=== PATIENT | male | born 1975 | race Caucasian/White ===

== ENCOUNTER → 2022-08-18 | Outpatient (CLI) | payer OTHER ==
[2022-08-18 08:02] VITALS: BP 127/79; PULSE 70; RESP 18
--- NOTE | 2022-08-18 14:43 | P.PAINPG ---
PQRS Measure Charge Sheet Comment: HISTORY OF PRESENT ILLNESS: 47 yr old male as a referral from [facility] presents today w severe and chronic neck pain secondary to stenosis, spondylosis and facet arthropathy without myelopathy for evaluation. Pt states pain level is at 8/10 in intensity w provocation, constant, localized in the mid cervical spine, dull/ throbbing in character w shooting pain towards the BL shoulders. Pain is provoked by over activity with the UEs. Pain is alleviated by PT completed in Jul 2022, home exercise regimen, heat, ice, medications (Flexeril), repositioning and rest. PMH: OA, HTN, GERD PSH: L Knee Surgery, R Elbow Surgery SH: +tobacco use, +Cannabis use, Rare ETOH use. Worked as an EMT. FH: Non contributory All: See lsit Meds: See list REVIEW OF ORGAN SYSTEMS: CONSTITUTIONAL: No fevers or chills. No recent weight loss. NEUROLOGICAL: + numbness and tingling along the distal extremities. No seizure disorders or headaches. MUSCULOSKELETAL: + pain PSYCHIATRIC: Denies current depression or suicidal thoughts. Physical Examinations : Constitutional : Cooperative , not in acute distress . Neurologic : Cranial nerve II to XII intact. No focal neurological deficits. Psychiatric : alert & oriented x 3. Matching mood & appropriate affect. Judgment & insight intact. Musculoskeletal : Cervical Spine Motor strength in the deltoid and biceps: Normal right side. Normal Left side Motor strength biceps and the wrist extensors: Normal right side . Normal left side Motor strength in the triceps muscle: Normal right side. Normal left side Deep tendon reflexes: Normal at the biceps. Normal at Brachioradialis. Normal at triceps Vertebral body tenderness to deep palpation over C5 Cervical facet loading test: positive bilaterally Spurling test: positive bilaterally Neck distraction test: positive bilaterally Tammi sign: positive bilaterally Lumbar spine Motor strength lower extremities ,thigh and legs 5/5 Right side , 5/5 Left side Deep tendon reflexes : Normal Knee Jerk. Normal Ankle Jerk Vertebral body tenderness over Lumbar facet Loading Test: positive Right / positive Left Range of motion of the lumbar spine Flexion 30 degrees, extension 10 degrees Straight Leg Raise test: Left/ Right positive at degree Silvana test: positive right / positive left. Severe tenderness over the Sacroiliac joint on the Right / Left sides Gaenslen test: positive bilaterally Seated flexion test: positive bilaterally. Sacral spine : Severe tenderness over the Sacroiliac joint: right side / left side Range of motion: Flexion of the lumbar spine <60 degrees Range of motion: Extension of the lumbar spine <20 degrees Gaenslen's Test positive Tylor's Test positive Silvana test: positive right side / left side Thigh Thrust Test Sacral Thrust Test Imaging: Pending Assessment/ Plan : Cervical stenosis Recommendation of CLARITA C5-C6. May need a series of injections, up to 3 within a 6 mo period, for optimal pain relief. Risks, benefits of procedure discussed and patient verbalized understanding. Denies aspirin or anti- coagulant use or medical history of diabetes. Protocol for discontinuation/ continuation of m edications cristina procedure discussed. All questions answered. I have spent greater than 30 minutes on patient care today. Dr Daugherty was available by phone for the evaluation of this patient. The time was used to review the medical records including relevant urine studies and Prescription history (MAPs), review of the available imaging, evaluation and examination of the patient, coordination of care with the medical staff and if applicable referring physicians, as well as creation of the medical record - Pain Location Neck Non-Pharmacological Interventions: Heat, Home Exercise, Ice, Inactivity, Physical Therapy, Position/Reposition, Stretching Pharmacological Interventions: PRN Medication Home Medications: Ambulatory Orders Cyclobenzaprine [Flexeril] 10 mg PO HS 08/18/22 Controlled Substance Measures - Controlled Substance Measures Is patient prescribed a controlled substance at discharge?: No
== END ==
LOC: PNWHC3 07:30
PROVIDERS: ATTEND Anesthesiology
DX: M48.02 Spinal stenosis, cervical region (principal); M19.90 Unspecified osteoarthritis, unspecified site; K21.9 Gastro-esophageal reflux disease without esophagitis; I10 Essential (primary) hypertension; Z88.8 Allergy status to other drugs, medicaments and biological substances
CPT/HCPCS: 99202

== ENCOUNTER → 2022-08-28 | Outpatient (CLI) | payer OTHER ==
--- NOTE | 2022-08-28 13:33 | MR ---
EXAMINATION TYPE: MR cervical spine wo con DATE OF EXAM: 08/28/2022 INDICATION: Patient age:Male; 47 years old; Reason for study: M48.02 CERVICAL STENOSIS. Neck pain, dizziness, numbness in arms and hands for 10 y ears. COMPARISON: Radiograph 04/29/2022 MRI 11/10/2016. TECHNIQUE: Multi planar, multi sequence imaging was performed utilizing: T1-weighted, T2-weighted, an d turbo inversion recovery imaging of the cervical spine. IV Contrast: None FINDINGS: Alignment: The cervical vertebral bodies have preserved heights. Alignment is within normal limits gi venkat patient positioning. Bones: Mild inversion recovery signal at the level of C5-C6 adjoining endplates. Additional Modic end plate changes are noted at this level. Cord: The spinal cord is unremarkable with regards to their signal intensity and morphology. Discs: Multilevel disc desiccation is present. C2-C3: No significant disc pathology. The spinal canal is patent. No neural foraminal stenosis. C3-C4: No significant disc pathology. The spinal canal is patent. No neural foraminal stenosis. C4-C5: No significant disc pathology. The spinal canal is patent. No neural foraminal stenosis. C5-C6: A disc osteophyte complex is present which minimally narrows the ventral subarachnoid space. Bilateral facet and uncovertebral joint arthropathy are present with mild bilateral neural foraminal stenosis. C6-C7: No significant disc pathology. The spinal canal is patent. Bilateral facet and uncovertebral joint arthropathy are present with mild bilateral neural foraminal stenosis. C7-T1: No significant disc pathology. The spinal canal is patent. No neural foraminal stenosis. Other: None. IMPRESSION: 1. No evidence for disc herniation or significant spinal canal stenosis. 2. Mild disc degeneration with associated osteoarthritic changes most pronounced at C5-C6 with active bony edema. This is mildly progressed from 2017.
== END | disposition home or self-care (01) ==
LOC: RADMRIMAIN 10:31
PROVIDERS: ATTEND Specialist
DX: M48.02 Spinal stenosis, cervical region (principal); M47.22 Other spondylosis with radiculopathy, cervical region; M50.122 Cervical disc disorder at C5-C6 level with radiculopathy; R60.0 Localized edema
CPT/HCPCS: 72141

== ENCOUNTER 2024-02-16 07:58 | Day surgery (SDC) | payer OTHER ==
[2024-02-16] MEDS: IV FLUID CONTINUATION 1,000 ML IV ONE (08:07)
[2024-02-16] MEDS: LACTATED RINGERS 1,000 ML IV SCH (08:22)
[2024-02-16 08:27] VITALS: RESP 16; TEMP 97.8
[2024-02-16] MEDS ORDERED: LIDOCAINE 1% INJ 10MG/ML (20 ML MDV) ONE (08:52)
[2024-02-16] MEDS ORDERED: PROPOFOL 10 MG/ML 20 ML VIAL IV ONE (08:52)
--- NOTE | 2024-02-16 08:56 | P.GSHP ---
History of Present Illness H&P Date: 02/16/24 Chief Complaint: Colon cancer screening 48-year-old male here for colonoscopy. He has not had 1 previously. No bowel complaints. Brother was diagnosed with metastatic colon cancer last fall and . No other family members with colon cancer. Past Medical History Past Medical History: GERD/Reflux, Hypertension, Osteoarthritis (OA) Additional Past Medical History / Comment(s): neck pain. headaches, numbness and tingling in arms from neck issues. scoliosis. back pain, hx. colon polyps, borderline hypertension, has had BP med prescribed in the past History of Any Multi-Drug Resistant Organisms: None Reported Past Surgical History: Orthopedic Surgery Additional Past Surgical History / Comment(s): lt knee arthroscopy. rt elbow surgery. egd, colonoscopy. Past Anesthesia/Blood Transfusion Reactions: No Reported Reaction Additional Past Anesthesia/Blood Transfusion Reaction / Comment(s): pt woke up early with elbow surgery. says needs more anesthesia than normal Smoking Status: Former smoker - Past Family History Father Family Medical History: Dementia Mother Family Medical History: Cancer Additional Family Medical History / Comment(s): lung cancer Medications and Allergies Home Medications Medication Instructions Recorded Confirmed Type Cyclobenzaprine [Flexeril] 10 mg PO HS 08/18/22 02/16/24 History Omeprazole 40 mg PO DAILY PRN 09/18/22 02/16/24 History Allergies Allergy/AdvReac Type Severity Reaction Status Date / Time gabapentin [From Neurontin] Allergy Hallucinati Verified 02/16/24 08:20 ons Surgical - Exam Vital Signs Temp Pulse Resp BP Pulse Ox 97.8 F 75 16 133/88 94 L 02/16/24 08:21 02/16/24 08:21 02/16/24 08:21 02/16/24 08:21 02/16/24 08:21 Physical exam: General: Well-developed, well-nourished HEENT: Normocephalic, sclerae nonicteric Abdomen: Nontender, nondistended Extremities: No edema Neuro: Alert and oriented Assessment and Plan (1) Colon cancer screening Narrative/Plan: Will proceed with colonoscopy at this time Current Visit: Yes Status: Acute Code(s): Z12.11 - ENCOUNTER FOR SCREENING FOR MALIGNANT NEOPLASM OF COLON SNOMED Code(s): 980825596
--- NOTE | 2024-02-16 09:08 | P.PCN ---
Date of Procedure: 02/16/24 Procedure(s) Performed: PREOPERATIVE DIAGNOSIS: Colon cancer screening, family history of colon cancer POSTOPERATIVE DIAGNOSIS: Normal exam PROCEDURE: Colonoscopy ANESTHESIA: MAC SURGEON: Bryan Daniel M.D. SPECIMENS: None ENDOSCOPIC PROCEDURE: The patient was placed on the endoscopy table in the left decubitus position. The Olympus colonoscope was inserted into the anus and passed under direct visualization to the base of the cecum. The appendiceal orifice was visualized. From that point the scope was slowly withdrawn inspecting all surfaces carefully. There were no neoplastic inflammatory or polypoid lesions throughout the cecum, ascending, transverse, descending, sigmoid and rectum. There was no visible diverticulosis noted. Digital rectal examination was normal. The patient was taken to the recovery room in stable condition per anesthesia guidelines. RECOMMENDATIONS: Resume diet. Repeat colonoscopy 5 years.
[2024-02-16 09:27] VITALS: BP 129/91; PULSE 74
== END 2024-02-16 09:50 | disposition home or self-care (01) ==
LOC: ORWHC2ENDO 07:58
PROVIDERS: ATTEND Surgery
DX: K21.9 Gastro-esophageal reflux disease without esophagitis (principal); I10 Essential (primary) hypertension; M19.90 Unspecified osteoarthritis, unspecified site; Z86.010 Personal history of colon polyps; Z87.891 Personal history of nicotine dependence; Z80.0 Family history of malignant neoplasm of digestive organs; Z81.8 Family history of other mental and behavioral disorders; Z80.1 Family history of malignant neoplasm of trachea, bronchus and lung; Z88.8 Allergy status to other drugs, medicaments and biological substances; Z79.1 Long term (current) use of non-steroidal anti-inflammatories (NSAID); Z79.899 Other long term (current) drug therapy
CPT/HCPCS: 45378; J2001; J2704

== ENCOUNTER → 2024-05-09 | Outpatient (CLI) | payer OTHER ==
[2024-05-09 09:01] VITALS: BP 134/81; PULSE 62; RESP 16; TEMP 97.1
--- NOTE | 2024-05-09 12:36 | P.PAINPG ---
PQRS Measure Charge Sheet Comment: HISTORY OF PRESENT ILLNESS: A 49 yr old male presents today w severe and chronic neck pain secondary to radiculopathy, spondylosis and facet arthropathy without myelopathy for evaluation s/p CLARITA C5-C6 #1 in 2022. Pt states he experienced 90 % pain relief x 1 wk s/p procedure. Pt states pain level is at 7 /10 in intensity w provocation, constant, localized in the mid cervical spine, predominantly axial, dull/ throbbing in character w occasional shooting pain towards the BL shoulders. Pain is provoked by over activity with the UEs. Pain is alleviated by PT completed in Jul 2022, chiropractic treatments weekly since December 2023 which he is currently in, heat, ice, medications, repositioning and rest. Interventional procedures include CLARITA C5-C6 x1 (2021) Medications include Flexeril, Tyl, Ibu, Cannabis use REVIEW OF ORGAN SYSTEMS: CONSTITUTIONAL: No fevers or chills. No recent weight loss. NEUROLOGICAL: + numbness and tingling along the distal extremities. No seizure disorders or headaches. MUSCULOSKELETAL: + pain PSYCHIATRIC: Denies current depression or suicidal thoughts. Physical Examinations : Constitutional : Cooperative , not in acute distress . Neurologic : Cranial nerve II to XII intact. No focal neurological deficits. Psychiatric : alert & oriented x 3. Matching mood & appropriate affect. Judgment & insight intact. Musculoskeletal : Cervical Spine Motor strength in the deltoid and biceps: Normal right side. Normal Left side Motor strength biceps and the wrist extensors: Normal right side . Normal left side Motor strength in the triceps muscle: Normal right side. Normal left side Deep tendon reflexes: Normal at the biceps. Normal at Brachioradialis. Normal at triceps Vertebral body tenderness to deep palpation over C6 Suarez test positive BL C6-C7 Cervical facet loading test: positive bilaterally C5-C6, C6-C7 Spurling test: positive bilaterally Neck distraction test: positive bilaterally Tammi sign: positive bilaterally Lumbar spine Motor strength lower extremities ,thigh and legs 5/5 Right side , 5/5 Left side Deep tendon reflexes : Normal Knee Jerk. Normal Ankle Jerk Vertebral body tenderness over Lumbar facet Loading Test: positive Right / positive Left Range of motion of the lumbar spine Flexion 30 degrees, extension 10 degrees Straight Leg Raise test: Left/ Right positive at degree Silvana test: positive right / positive left. Severe tenderness over the Sacroiliac joint on the Right / Left sides Gaenslen test: positive bilaterally Seated flexion test: positive bilaterally. Sacral spine : Severe tenderness over the Sacroiliac joint: right side / left side Range of motion: Flexion of the lumbar spine <60 degrees Range of motion: Extension of the lumbar spine <20 degrees Gaenslen's Test positive Tylor's Test positive Silvana test: positive right side / left side Thigh Thrust Test Sacral Thrust Test Imaging: MRI non contrast cervical spine from 08/28/22 reviewed Assessment/ Plan : Cervical radiculopathy Recommendation of MARI MBB C5-C6/ C6-C7 #1. Risks, benefits of procedure discussed and patient verbalized understanding. Minimal anesthesia including Fentanyl and Versed if clinically indicated. Protocol for discontinuation/ continuation of medications cristina procedure discussed. Short course of [employer] 7.5/325mg #18 NR. Pt states he is no longer using cannabis. UDS collected 05/09/24 . Use, side effects, adverse reactions, safe storage discussed. All questions answered. I have spent greater than 30 minutes on patient care today. Dr Daugherty was available by phone for the evaluation of this patient. The time was used to review the medical records including relevant urine studies and Prescription history (MAPs), review of the available imaging, evaluation and examination of the patient, coordination of care with the medical staff and if applicable referring physicians, as well as creation of the medical record - Pain Location Bilateral Lower Neck Non-Pharmacological Interventions: Chiropractic Treatment, Heat, Ice, Inactivity, Position/Reposition, Sitting Pharmacological Interventions: PRN Medication, Topical Medication PQRS Narrative: Hx Alcohol Use (MH) Yes Home Medications: Ambulatory Orders Cyclobenzaprine [Flexeril] 10 mg PO HS 08/18/22 Omeprazole 40 mg PO DAILY PRN 09/18/22 HYDROcodone/APAP 7.5-325MG [[employer] 7.5-325] 1 tab PO Q4H PRN 3 Days #18 tab 05/09/24 hydrOXYzine HCL [Hydroxyzine HCl] 10 mg PO HS 05/09/24 Controlled Substance Measures - Controlled Substance Measures Is patient prescribed a controlled substance at discharge?: Yes When asked, does pt state using other controlled substances?: No If prescribed controlled substance>3 days was MAPS reviewed?: Prescribed <3 Days
== END ==
LOC: PNWHC3 08:43
PROVIDERS: ATTEND Specialist
DX: M47.816 Spondylosis without myelopathy or radiculopathy, lumbar region
CPT/HCPCS: 80307; 99212

== ENCOUNTER 2024-05-29 08:28 | Emergency (ER) | payer OTHER ==
[2024-05-29 08:44] VITALS: BP 139/82; PULSE 68; RESP 18; TEMP 98.4
--- NOTE | 2024-05-29 09:23 | ED ---
Back Pain HPI - General Chief Complaint: Back Pain/Injury Stated Complaint: back pain Time Seen by Provider: 05/29/24 08:40 Source: patient, RN notes reviewed Limitations: no limitations - History of Present Illness Initial Comments: 49-year-old male with a history of chronic back pain presents emergency department chief complaint of thoracic back pain/muscle spasms. Patient states that he was working his car approximately 1 week ago when he pulled his back. He has been persistent pain in his thoracic spine since. States that pain will radiate to the right upper extremity and he will experience intermittent paresthesias as well. Patient states that he is scheduled with disease intervention specialist for facet joint injections however he has not been approved by insurance yet. He has been taking Flexeril that is prescribed at home with minimal relief. He denies falling during the time of the injury. He denies loss of bladder bowel continence, saddle anesthesias, history of IV drug use. Denies radiation of pain into the front of his chest. Denies chest pain, shortness of breath, difficulty breathing, heart palpitations. - Related Data Home Medications Medication Instructions Recorded Confirmed Cyclobenzaprine [Flexeril] 10 mg PO HS 08/18/22 05/09/24 Omeprazole 40 mg PO DAILY PRN 09/18/22 05/09/24 hydrOXYzine HCL [Hydroxyzine HCl] 10 mg PO HS 05/09/24 05/09/24 Previous Rx's Medication Instructions Recorded HYDROcodone/APAP 7.5-325MG [[place] 1 tab PO Q4H PRN 3 Days #18 tab 05/09/24 7.5-325] Ketorolac [Toradol] 10 mg PO Q8HR #15 tab 05/29/24 predniSONE 50 mg PO DAILY #5 tab 05/29/24 Allergies Allergy/AdvReac Type Severity Reaction Status Date / Time gabapentin [From Neurontin] Allergy Hallucinati Verified 05/29/24 08:39 ons Review of Systems ROS Statement: Those systems with pertinent positive or pertinent negative responses have been documented in the HPI. ROS Other: All systems not noted in ROS Statement are negative. Past Medical History Past Medical History: GERD/Reflux, Hypertension, Osteoarthritis (OA) Additional Past Medical History / Comment(s): neck pain. headaches, numbness and tingling in arms from neck issues. scoliosis. back pain, hx. colon polyps, borderline hypertension, has had BP med prescribed in the past History of Any Multi-Drug Resistant Organisms: None Reported Past Surgical History: Orthopedic Surgery Additional Past Surgical History / Comment(s): lt knee arthroscopy. rt elbow surgery. egd, colonoscopy. Past Anesthesia/Blood Transfusion Reactions: No Reported Reaction Additional Past Anesthesia/Blood Transfusion Reaction / Comment(s): pt woke up early with elbow surgery. says needs more anesthesia than normal Past Psychological History: No Psychological Hx Reported Smoking Status: Former smoker Past Alcohol Use History: None Reported Past Drug Use History: None Reported - Past Family History Father Family Medical History: Dementia Mother Family Medical History: Cancer Additional Family Medical History / Comment(s): lung cancer General Exam Limitations: no limitations General appearance: alert, in no apparent distress Eye exam: Present: normal appearance, PERRL, EOMI. Absent: scleral icterus, conjunctival injection, periorbital swelling ENT exam: Present: normal exam, mucous membranes moist Neck exam: Present: normal inspection. Absent: tenderness, meningismus, lymphadenopathy Respiratory exam: Present: normal lung sounds bilaterally. Absent: respiratory distress, wheezes, rales, rhonchi, stridor Cardiovascular Exam: Present: regular rate, normal rhythm, normal heart sounds. Absent: systolic murmur, diastolic murmur, rubs, gallop, clicks GI/Abdominal exam: Present: soft, normal bowel sounds. Absent: distended, tenderness, guarding, rebound, rigid Extremities exam: Present: normal inspection, full ROM, normal capillary refill. Absent: tenderness, pedal edema, joint swelling, calf tenderness Back exam: Present: normal inspection, tenderness, muscle spasm (thoracic spine, most notable over the right) Neurological exam: Present: alert, oriented X3, CN II-XII intact Course Vital Signs 05/29/24 08:39 Temperature 98.4 F Pulse Rate 68 Respiratory 18 Rate Blood Pressure 139/82 O2 Sat by Pulse 99 Oximetry Medical Decision Making - Medical Decision Making Was pt. sent in by a medical professional or institution (, PILY, CONSTRUCTION CARPENTER, urgent care, hospital, or [facility]...) When possible be specific @ -No Did you speak to anyone other than the patient for history (EMS, parent, family, police, friend...)? What history was obtained from this source @ -No Did you review nursing and triage notes (agree or disagree)? Why? @ -I reviewed and agree with nursing and triage notes Were old charts reviewed (outside hosp., previous admission, EMS record, old EKG, old radiological studies, urgent care reports/EKG's, [facility] records)? Report findings @ -No old charts were reviewed Differential Diagnosis (chest pain, altered mental status, abdominal pain women, abdominal pain men, vaginal bleeding, weakness, fever, dyspnea, syncope, headache, dizziness, GI bleed, back pain, seizure, CVA, palpatations, mental health, musculoskeletal)? @ -Differential Back Pain: Strain, zoster, cauda equina syndrome, epidural abscess, vertebral osteomyelitis, discitis, fracture, subluxation, disc herniation, DJD, spinal stenosis, dissection, AAA, pancreatitis, peptic ulcer disease, pyelonephritis, kidney stone, this is not meant to be an all-inclusive list. EKG interpreted by me (3pts min.). @ -none X-rays interpreted by me (1pt min.). @ -None done CT interpreted by me (1pt min.). @ -None done U/S interpreted by me (1pt. min.). @ -None done What testing was considered but not performed or refused? (CT, X-rays, U/S, labs)? Why? @ -X-ray imaging was considered but deferred at this time. Patient had a mechanical injury resulting in pain to the back additionally patient is pain is exacerbated to palpation with range of motion is consistent with a muscular injury. There is minimal clinical concern for a osseous abnormality and patient is in agreement with deferring x-ray imaging at this time. What meds were considered but not given or refused? Why? @ -None Did you discuss the management of the patient with other professionals (professionals i.e. , PA, CONSTRUCTION CARPENTER, lab, RT, psych nurse, social worker health services, [employer] team member, teacher, fourth officer, case aide)? Give summary @ -No Was smoking cessation discussed for >3mins.? @ -No Was critical care preformed (if so, how long)? @ -No Were there social determinants of health that impacted care today? How? (Homelessness, low income, unemployed, alcoholism, drug addiction, transportation, low edu. Level, literacy, decrease access to med. care, care home, rehab)? @ -No Was there de-escalation of care discussed even if they declined (Discuss DNR or withdrawal of care, Hospice)? DNR status @ -No What co-morbidities impacted this encounter? (DM, HTN, Smoking, COPD, CAD, Cancer, CVA, ARF, Chemo, Hep., AIDS, mental health diagnosis, sleep apnea, morbi d obesity)? @ -None Was patient admitted / discharged? Hospital course, mention meds given and route, prescriptions, significant lab abnormalities, going to OR and other pertinent info. @ -Discharge. 49-year-old male with muscle spasms of the thoracic spine. On my evaluation the patient is resting comfortably no signs acute distress. His vitals are stable. He is noted to have thoracic back pain is exacerbated with range of motion and palpation of the thoracic spine. There is no overlying erythema. Patient has neurovascularly intact with no acute deficits. Strength intact of bilateral upper extremities, strong pulses. Patient is taking Flexeril at home as prescribed by outpatient provider with minimal relief. He is provided with a prescription for Tylenol 3 that he will take home in addition to a prescription for Toradol and steroids to take. Recommend that he follows up with his customer account specialist as scheduled for further evaluation. Discussed with Dr. Hong Undiagnosed new problem with uncertain prognosis? @ -No Drug Therapy requiring intensive monitoring for toxicity (Heparin, Nitro, Insulin, Cardizem)? @ -No Were any procedures done? @ -No Diagnosis/symptom? @ -muscle spasms of thoracic spine Acute, or Chronic, or Acute on Chronic? @ -acute Uncomplicated (without systemic symptoms) or Complicated (systemic symptoms)? @ -uncomplicated Side effects of treatment? @ -No Exacerbation, Progression, or Severe Exacerbation? @ -No Poses a threat to life or bodily function? How? (Chest pain, [place], [place], pneumonia, PE, COPD, DKA, ARF, appy, cholecystitis, CVA, Diverticulitis, Homicidal, Suicidal, threat to staff... and all critical care pts) @ -No Disposition Clinical Impression: Spasm of thoracic back muscle, Back pain Disposition: HOME SELF-CARE Condition: Good Instructions (If sedation given, give patient instructions): Muscle Spasm (ED) Additional Instructions: Please return to the Emergency Department if symptoms worsen or any other concerns. Complete course of steroids as prescribed recommend that you take Toradol and Tylenol 3 only as needed. Do not mix Tylenol 3 with muscle relaxer. Do not mix Toradol with Motrin. Continue supportive treatment at home. Continue to follow-up with customer account specialist outpatient for further evaluation. Prescriptions: predniSONE 50 mg PO DAILY #5 tab Ketorolac [Toradol] 10 mg PO Q8HR #15 tab Is patient prescribed a controlled substance at d/c from ED?: No Referrals: Chevy Gray MD [Primary Care Provider] - 1-2 days Time of Disposition: 09:28
[2024-05-29] MEDS: ACET/COD 300 MG/30 MG STARTER PACK 6 TAB BTL PO STA (10:39)
== END 2024-05-29 10:41 | disposition home or self-care (01) ==
LOC: EC 08:28
CPT/HCPCS: 99283

== ENCOUNTER 2024-06-14 07:13 | Day surgery (SDC) | payer OTHER ==
[2024-06-09 14:35] VITALS: BMI 26.5
[2024-06-14 07:52] VITALS: TEMP 97.8
[2024-06-14] MEDS: LACTATED RINGERS 1,000 ML IV SCH (07:56)
[2024-06-14] MEDS: IV FLUID CONTINUATION 1,000 ML IV ONE ×2 (07:56→09:39)
[2024-06-14 08:03] LABS: Glucose,Whole Blood 100 mg/dL (70-110)
[2024-06-14] MEDS ORDERED: fentaNYL (PF) 50 MCG/ML 2 ML AMP ONE (09:04)
[2024-06-14] MEDS ORDERED: ROPIVACAINE 5MG/ML 20ML VIAL ONE (09:04)
[2024-06-14] MEDS ORDERED: MIDAZOLAM 2 MG/2 ML VIAL ONE (09:04)
--- NOTE | 2024-06-14 09:47 | P.PCN ---
Description of Procedure: Preprocedure diagnosis. Cervical facet joint arthropathy, cervical spine spondylosis, cervical degenerative disc disease. Postprocedure diagnosis. As above. Procedure done. Bilateral C6-7, C5-6 facet joint (C5, C6,C7 medial branch of dorsal ramus) diagnostic injection with local anesthetics under fluoroscopic guidance. Anesthesia. IV sedation of Versed 2milligram, 100fentanyl micrograms give in OR. Continuous pulse ox, EKG, blood pressure and verbal communication was maintained with the patient in OR. Blood loss. None. Indication. Patient has got the diagnoses of cervical spondylolysis, facet joint arthropathy with neck pain. Discussed with the patient procedure, alternatives, complications including infection, bleeding, nerve damage, paralysis all of which could be permanent. Patient understands and all questions are answered. Procedure note. After getting consent patient in OR in prone position. Back of the neck was prepped with chlorhexidine and draped in sterile fashion. After injecting 3 mL of plain 1% lidocaine subcutaneously, a 22-gauge spinal needle was introduced under tunnel vision of the fluoroscope AP view at the waist of the articular pillar (lateral mass) at C5 vertebral level. In the lateral view of the fluoroscope it was confirmed that the tip of the needle stayed within the dorsal half of the articular pillar (lateral mass). So, right C5-6 facet joint was targeted by blocking right C5 and C6 medial branch, right C6-7 facet joint was targeted by blocking right C6 and C7 medial branch. In exactly the same way , after subcutaneous injection of lidocaine, 22-gauge spinal needles were introduced under tunnel vision of the fluoroscope AP view at the waist of the articular pillars (lateral mass) at C6 and C7 vertebral level. In the lateral view of the fluoroscope it was confirmed that the tip of the needle stayed within the dorsal half of the articular pillar (lateral mass). At each needle, 0.5 mL of 0.5% ropivacaine preservative-free was injected. In exactly same way left C5-6, C6-7 facet joints were targeted by blocking left C7, C5, C6 medial branch of dorsal ramus. After the procedure needle was taken out and bandage was applied. Disposition. Patient tolerated the procedure well. No complication. Discharged home in stable condition.
[2024-06-14 09:55] VITALS: BP 125/80; PULSE 64; RESP 14
--- NOTE | 2024-06-14 10:32 | FL ---
Fluoroscopy INDICATION: Pain FINDINGS: Fluoroscopy time: 56.2 seconds. Total dose area product (DAP) in uGy*m?, mGy*cm? (or similar): 0.39518 Images obtained: 3. Images demonstrate multiple needle placements in the cristina-Cervical spinal region. IMPRESSION: 1. Documentation of fluoroscopy. [facility] , 06/14/2024 10:29 AM
== END 2024-06-14 10:05 | disposition home or self-care (01) ==
LOC: ORPAIN 07:13
PROVIDERS: ATTEND Pain Medicine Interventional Pain Medicine
DX: M47.812 Spondylosis without myelopathy or radiculopathy, cervical region (principal); M50.323 Other cervical disc degeneration at C6-C7 level; Z79.1 Long term (current) use of non-steroidal anti-inflammatories (NSAID); Z88.8 Allergy status to other drugs, medicaments and biological substances
CPT/HCPCS: 99152

== ENCOUNTER → 2024-07-14 | Outpatient (CLI) | payer OTHER ==
[2024-07-14 14:40] VITALS: BP 136/85; PULSE 72; RESP 18; TEMP 97.5
--- NOTE | 2024-07-14 15:25 | P.PAINPG ---
PQRS Measure Charge Sheet Comment: HISTORY OF PRESENT ILLNESS: A 49 yr old male presents today w severe and chronic neck pain secondary to radiculopathy, spondylosis and facet arthropathy without myelopathy for evaluation s/p BL MBB C5-C6/ C6-C7 #1. Pt states he experienced 90 % pain relief x 1 wk s/p procedure. Pt states pain level is at 6 /10 in intensity w provocation, intermittent, localized in the mid cervical spine, predominantly axial, throbbing in character without shooting pain. Pain is provoked by over activity with the UEs. Pain is alleviated by PT completed in Jul 2022, chiropractic treatments weekly since December 2023 which he is currently in, heat, ice, medications, repositioning and rest. PT out of pocket costs are $75 per visit which is too burdensome for the patient. Interventional procedures include CLARITA C5-C6 x1 (2021), BL MBB C5-C7 x1 Medications include Flexeril, Tyl, Ibu. Discontinued cannabis use. REVIEW OF ORGAN SYSTEMS: CONSTITUTIONAL: No fevers or chills. No recent weight loss. NEUROLOGICAL: + numbness and tingling along the distal extremities. No seizure disorders or headaches. MUSCULOSKELETAL: + pain PSYCHIATRIC: Denies current depression or suicidal thoughts. Physical Examinations : Constitutional : Cooperative , not in acute distress . Neurologic : Cranial nerve II to XII intact. No focal neurological deficits. Psychiatric : alert & oriented x 3. Matching mood & appropriate affect. Judgment & insight intact. Musculoskeletal : Cervical Spine Motor strength in the deltoid and biceps: Normal right side. Normal Left side Motor strength biceps and the wrist extensors: Normal right side . Normal left side Motor strength in the triceps muscle: Normal right side. Normal left side Deep tendon reflexes: Normal at the biceps. Normal at Brachioradialis. Normal at triceps Vertebral body tenderness to deep palpation over C6 Suarez test positive BL C6-C7 Cervical facet loading test: positive bilaterally C5-C6, C6-C7 Spurling test: positive bilaterally Neck distraction test: positive bilaterally Tammi sign: positive bilaterally Lumbar spine Motor strength lower extremities ,thigh and legs 5/5 Right side , 5/5 Left side Deep tendon reflexes : Normal Knee Jerk. Normal Ankle Jerk Vertebral body tenderness over Lumbar facet Loading Test: positive Right / positive Left Range of motion of the lumbar spine Flexion 30 degrees, extension 10 degrees Straight Leg Raise test: Left/ Right positive at degree Silvana test: positive right / positive left. Severe tenderness over the Sacroiliac joint on the Right / Left sides Gaenslen test: positive bilaterally Seated flexion test: positive bilaterally. Sacral spine : Severe tenderness over the Sacroiliac joint: right side / left side Range of motion: Flexion of the lumbar spine <60 degrees Range of motion: Extension of the lumbar spine <20 degrees Gaenslen's Test positive Tylor's Test positive Silvana test: positive right side / left side Thigh Thrust Test Sacral Thrust Test Imaging: MRI non contrast cervical spine from 08/28/22 reviewed Assessment/ Plan : Cervical radiculopathy Recommendation of MARI MBB C5-C6/ C6-C7 #2. Risks, benefits of procedure discussed and patient verbalized understanding. Minimal anesthesia including Fentanyl and Versed if clinically indicated. Protocol for discontinuation/ continuation of medications cristina procedure discussed. Pt states he is no longer using cannabis. UDS from 05/09/24 NEG for THC. Use, side effects, adverse reactions, safe storage discussed. All questions answered. I have spent greater than 30 minutes on patient care today. Dr Daugherty was available by phone for the evaluation of this patient. The time was used to review the medical records including relevant urine studies and Prescription history (MAPs), review of the available imaging, evaluation and examination of the patient, coordination of care with the medical staff and if applicable referring physicians, as well as creation of the medical record PQRS Narrative: Hx Alcohol Use (MH) Yes Home Medications: Ambulatory Orders Cyclobenzaprine [Flexeril] 10 mg PO HS 08/18/22 Omeprazole 40 mg PO DAILY PRN 09/18/22 hydrOXYzine HCL [Hydroxyzine HCl] 10 mg PO HS 05/09/24 Controlled Substance Measures - Controlled Substance Measures Is patient prescribed a controlled substance at discharge?: No
== END ==
LOC: PNWHC3 13:54
PROVIDERS: ATTEND Specialist
DX: M54.12 Radiculopathy, cervical region (principal); Z88.8 Allergy status to other drugs, medicaments and biological substances
CPT/HCPCS: 99211

== ENCOUNTER 2024-09-08 07:04 | Day surgery (SDC) | payer OTHER ==
[2024-09-08 07:23] VITALS: TEMP 98.1
[2024-09-08] MEDS ORDERED: LACTATED RINGERS 1,000 ML IV SCH (07:25)
[2024-09-08] MEDS: IV FLUID CONTINUATION 1,000 ML IV ONE (07:25)
[2024-09-08] MEDS ORDERED: ROPIVACAINE 5MG/ML 20ML VIAL ONE (08:32)
[2024-09-08] MEDS ORDERED: fentaNYL (PF) 50 MCG/ML 2 ML AMP ONE (08:32)
[2024-09-08] MEDS ORDERED: MIDAZOLAM 2 MG/2 ML VIAL ONE (08:32)
--- NOTE | 2024-09-08 09:06 | P.PCN ---
Description of Procedure: Preprocedure diagnosis. Cervical facet joint arthropathy, cervical spine spondylosis, cervical degenerative disc disease. Postprocedure diagnosis. As above. Procedure done. Bilateral C6-7, C5-6 facet joint (C7, C5, C6 medial branch of dorsal ramus) diagnostic injection with local anesthetics under fluoroscopic guidance. Anesthesia. IV sedation of 2Versed milligram, fentanyl 100 micrograms give in OR. Continuous pulse ox, EKG, blood pressure and verbal communication was maintained with the patient in OR. Blood loss. None. Indication. Patient has got the diagnoses of cervical spondylolysis, facet joint arthropathy with neck pain. Discussed with the patient procedure, alternatives, complications including infection, bleeding, nerve damage, paralysis all of which could be permanent. Patient understands and all questions are answered. Procedure note. After getting consent patient in OR in prone position. Back of the neck was prepped with chlorhexidine and draped in sterile fashion. After injecting 3 mL of plain 1% lidocaine subcutaneously, a 22-gauge spinal needle was introduced under tunnel vision of the fluoroscope AP view at the waist of the articular pillar (lateral mass) at C5 vertebral level. In the lateral view of the fluoroscope it was confirmed that the tip of the needle stayed within the dorsal half of the articular pillar (lateral mass). So, right C5-6 facet joint was targeted by blocking right C6 and C5 medial branch, right C6-7 facet joint was targeted by blocking right C7 and C6 medial branch. In exactly the same way , after subcutaneous injection of lidocaine, 22-gauge spinal needles were introduced under tunnel vision of the fluoroscope AP view at the waist of the articular pillars (lateral mass) at C7 and C6 vertebral level. In the lateral view of the fluoroscope it was confirmed that the tip of the needle stayed within the dorsal half of the articular pillar (lateral mass). At each needle, 0.5 mL of 0.5% ropivacaine preservative-free was injected. In exactly same way left C6-7, C5-6 facet joints were targeted by blocking left C7, C5, C6 medial branch of dorsal ramus. After the procedure needle was taken out and bandage was applied. Disposition. Patient tolerated the procedure well. No complication. Discharged home in stable condition.
[2024-09-08] MEDS: IV FLUID CONTINUATION 500 ML IV ONE (09:08)
[2024-09-08 09:34] VITALS: BP 117/74; PULSE 71; RESP 18
--- NOTE | 2024-09-08 09:41 | FL ---
EXAMINATION TYPE: FL guided pain mgmt statistic DATE OF EXAM: 09/08/2024 FLUOROSCOPY PAIN SERVICES FACET BLOCK TOM CERVICAL FL TIME 69.6 SECS DAP [id number] 3 images are submitted. [facility], , 09/08/2024 9:39 AM
== END 2024-09-08 09:50 | disposition home or self-care (01) ==
LOC: ORPAIN 07:04
PROVIDERS: ATTEND Pain Medicine Interventional Pain Medicine
DX: M47.812 Spondylosis without myelopathy or radiculopathy, cervical region (principal); M50.322 Other cervical disc degeneration at C5-C6 level
CPT/HCPCS: 64490; 64491; J2250; J3010; J2795; 99152; 99153

== ENCOUNTER 2024-11-04 06:13 | Day surgery (SDC) | payer OTHER ==
[2024-11-01 15:47] VITALS: BMI 27.9
[2024-11-04] MEDS ORDERED: LACTATED RINGERS 1,000 ML IV SCH (06:21)
[2024-11-04] MEDS: LACTATED RINGERS 500 ML IV ONE (06:44)
[2024-11-04 06:47] VITALS: TEMP 97.7
[2024-11-04] MEDS ORDERED: ROPIVACAINE 5MG/ML 20ML VIAL ONE (07:05)
[2024-11-04] MEDS ORDERED: fentaNYL (PF) 50 MCG/ML 2 ML AMP ONE (07:05)
[2024-11-04] MEDS ORDERED: MIDAZOLAM 2 MG/2 ML VIAL ONE (07:05)
[2024-11-04] MEDS: IV FLUID CONTINUATION 500 ML IV ONE (07:51)
--- NOTE | 2024-11-04 07:54 | P.PCN ---
Description of Procedure: Preprocedure diagnosis. Cervical spondylosis. Cervical facet joint arthropathy. Postprocedure diagnosis. As above. Procedure done. Right C6-7, C5-6 facet joint (C7,5,6 medial branch of dorsal ramus ) radiofrequency ablation under fluoroscopic guidance. Anesthesia. IV sedation with versed 2mg and fentanyl 100 microgram. Continuous pulse ox, EKG, blood pressure and verbal communication was maintained with the patient in OR. Sedation time-start 0705 ,stop 0742 . Blood loss. None. Indication. Patient has got the diagnoses of cervical spondylolysis, facet joint arthropathy with neck pain. Diagnostic medial branch block relieved significant pain. Discussed with the patient procedure, alternatives, complications including infection, bleeding, nerve damage, paralysis all of which could be permanent. Patient understands and all questions are answered. Procedure note. After getting consent patient in OR in prone position. Back of the neck was prepped with chlorhexidine and draped in sterile fashion. After injecting 5 mL of plain 1% lidocaine subcutaneously, a 20-gauge RFA needle was introduced under tunnel vision of the fluoroscope AP view at the waist of the articular pillar (lateral mass) at C5 vertebral level. In the lateral view of the fluoroscope it was confirmed that the tip of the needle stayed within the dorsal half of the articular pillar (lateral mass). C5-6 facet joint was targeted by blocking C6 and C5 medial branch, C6-7 facet joint was targeted by blocking C7 and C6 medial branch . After subcutaneous injection of lidocaine, RFA needle were introduced under tunnel vision of the fluoroscope AP view at the waist of the articular pillars (lateral mass) at C6 vertebral level. In the lateral view of the fluoroscope it was confirmed that the tip of the needle stayed within the dorsal half of the articular pillar (lateral mass). After subcutaneous injection of lidocaine, RFA needle were introduced under tunnel vision of the fluoroscope AP view at the waist of the articular pillars (lateral mass) at C7 vertebral level. In the lateral view of the fluoroscope it was confirmed that the tip of the needle stayed within the dorsal half of the articular pillar (lateral mass). . After positive sensory and negative motor stimulation,injection of 1 ml of 0.5% Ropivacaine, radiofrequency ablation was done at 80 C's for 90 seconds. Second lesion was done at the same settings after rotating the needls 180 degrees. After the procedure needle was taken out and bandage was applied. Disposition. Patient tolerated the procedure well. No complication. Discharged home in stable condition.
--- NOTE | 2024-11-04 08:06 | FL ---
EXAMINATION TYPE: FL guided pain mgmt statistic DATE OF EXAM: 11/04/2024 CLINICAL INDICATION: Male, 49 years old with history of Erich Cerv Rad Freq; PH[facility], TECHNIQUE: Fluoroscopy. COMPARISON: None. FINDINGS: Fluoroscopic guidance was provided during pain relief procedure performed by Dr. Morgan . A total of 41.7 seconds of fluoroscopic time was utilized during the procedure and two spot images ar e acquired. Images acquired shows needle localization at several levels in the cervical spine. Multi level degenerative changes are present. Total DAP: 0.21964 mGym2. IMPRESSION: As Above. [facility], , 11/04/2024 8:04 AM
[2024-11-04 08:23] VITALS: BP 118/75; PULSE 55; RESP 16
== END 2024-11-04 08:26 | disposition home or self-care (01) ==
LOC: ORPAIN 06:13
PROVIDERS: ATTEND Pain Medicine Interventional Pain Medicine
DX: M47.812 Spondylosis without myelopathy or radiculopathy, cervical region (principal); Z79.1 Long term (current) use of non-steroidal anti-inflammatories (NSAID); Z88.8 Allergy status to other drugs, medicaments and biological substances
CPT/HCPCS: 64633; 64634; J2250; J3010; J2795; 99152; 99153